=== PATIENT | male | born 1990 | race Caucasian/White ===

== ENCOUNTER 2016-08-10 14:17 | Inpatient (IN) | payer OTHER ==
--- NOTE | ~2016-08-10 | PN ---
Unit #: [id number] #: [id number] Patient: ALBINA JUNIOR [id number] [facility] [address] [place] [address] [id number] MR#: [id number] NAME: ALBINA JUNIOR ROOM: P209 Age: 26 Sex: M Admission Date: 08/10/2016 : 1990 Attending Physician: Kleber Martinez M.D. Admitting Physician: Kleber Martinez M.D. Primary Care Physician: Primary Care Physician Jennifer LI PROGRESS NOTES DATE 08/11/2016 DISCUSSION Mr. Junior is a 26-year-old, white male who was seen today and chart was reviewed and case was discussed with the staff. He has been anxious, withdrawn and rather seclusive to himself. Meanwhile, he has been cooperative with treatment recommendations. He has been taking medications and tolerating them fairly well with no reported side effects. MENTAL STATUS EXAM Young white male who was casually dressed with fair personal hygiene, appears to be in no acute distress or discomfort. He was awake and alert on interaction with intact orientation. His mood was anxious with congruent affect. He denies any suicidal or homicidal ideation. Also, denies any auditory or visual hallucinations. His insight and judgement remains slightly impaired. TREATMENT PLAN 1. We will continue him on his current medications and treatment protocol. We will monitor his response to the medication and make further adjustments as needed. 2. We will continue to follow up. Dictated by... Bharti Benjamin/severo TD: 08/13/2016 01:30 JOB #: [id number] Unit #: [id number] #: [id number] Patient: ALBINA JUNIOR PROGRESS NOTES Page 1 of 1 X Kleber Martinez MD X PROGRESS NOTE
--- NOTE | ~2016-08-10 | PN ---
Unit #: [id number] #: [id number] Patient: ALBINA JUNIOR [id number] [facility] [address] [place] [address] [id number] I MR#: [id number] NAME: ALBINA JUNIOR ROOM: P209 Age: 26 Sex: M Admission Date: 08/10/2016 : 1990 Attending Physician: Kleber Martinez M.D. Admitting Physician: Kleber Martinez M.D. Primary Care Physician: Primary Care Physician Jennifer LI PROGRESS NOTES DATE OF SERVICE: 08/13/2016 SUBJECTIVE Mr. Junior is a 26-year-old white male who was seen today and chart was reviewed, and case was discussed with the staff. He has been anxious, withdrawn, and rather seclusive to himself. Meanwhile, he has been cooperative with treatment recommendations and has been taking the medications and tolerating them fairly well with no reported side effects. MENTAL STATUS EXAMINATION Young white male who was casually dressed with fair personal hygiene, appears to be in no acute distress or discomfort. He was awake and alert on interaction with intact orientation. His mood was anxious with a congruent affect. He denies any suicidal or homicidal ideations, and also denies any auditory or visual hallucinations. His insight and judgment remain slightly impaired. TREATMENT PLAN 1. We will continue him on his current medications and treatment protocol. We will monitor his response to medications and make further adjustments as needed. 2. We will continue to follow up. Dictated by... Bharti Benjamin/mick TD: 08/13/2016 19:32 JOB #: [id number] [facility] PROGRESS NOTES Page 1 of 1 X Kleber Martinez MD PROGRESS NOTE
--- NOTE | ~2016-08-10 | PN ---
Unit #: [id number] #: [id number] Patient: ALBINA JUNIOR [id number] [facility] [address] [place] [address] [id number] MR#: [id number] NAME: ALBINA JUNIOR ROOM: P209 Age: 26 Sex: M Admission Date: 08/10/2016 : 1990 Attending Physician: Kleber Martinez M.D. Admitting Physician: Kleber Martinez M.D. Primary Care Physician: Primary Care Physician Jennifer ESCOBEDO NOTES DATE OF SERVICE: 08/12/2016 SUBJECTIVE Mr. Junior is a 26-year-old white male who was seen today and chart was reviewed, and case was discussed with the staff. He has been anxious, withdrawn, and rather seclusive to himself. Meanwhile, he has been taking the medications and tolerating them fairly well with no reported side effects. MENTAL STATUS EXAMINATION Young white male who was casually dressed with fair personal hygiene, appears to be in no acute distress or discomfort. He was awake and alert on interaction with intact orientation. His mood was anxious with a congruent affect. He denies any suicidal or homicidal ideations. His insight and judgment remain significantly impaired. TREATMENT PLAN 1. We will continue him on his current medications and treatment protocol. We will monitor his response and make further adjustments as needed. 2. We will continue to follow up. Dictated by... Bharti Benjamin/mick TD: 08/12/2016 12:21 JOB #: [id number] [facility] PROGRESS NOTES Page 1 of 1 X Kleber Martinez MD PROGRESS NOTE
--- NOTE | ~2016-08-10 | DS ---
Unit #: [id number] #: [id number] Patient: ALBINA JUNIOR [id number] [facility] [address] [place] [address] [id number] MR#: [id number] NAME: ALBINA JUNIOR ROOM: P209 Age: 26 Sex: M Admission Date: 08/10/2016 : 1990 Discharge Date: 08/14/2016 Attending Physician: Kleber Martinez M.D. Primary Care Physician: Primary Care Physician No DISCHARGE SUMMARY IDENTIFYING DATA Mr. Junior is a 26-year-old, , white male, who is a resident of [place], [place], was self-referred to the hospital on a voluntary basis. DISCHARGE DIAGNOSES Psychiatric: Opioid dependence, moderate, in acute withdrawal; opioid-induced mood disorder. Medical: None. Stressors: Moderate psychosocial stressors. HISTORY OF PRESENT ILLNESS Please see initial psychiatric evaluation for details. PAST PSYCHIATRIC HISTORY Please see initial psychiatric evaluation for details. PAST MEDICAL HISTORY Please see initial psychiatric evaluation for details. HOSPITAL COURSE The patient was [facility] and was oriented to the hospital environment. Routine p.r.n. medications were initiated, and was started back on his home medications and was closely monitored. He was taking medications regularly. He is tolerating them fairly well and was able to show a decent therapeutic response with improvement in depression and anxiety and was willing to continue treatment on an outpatient basis. DISCHARGE MEDICATIONS None. DISCHARGE CONDITION Stable. PROGNOSIS Fair. Dictated by... Kleber Martinez M.D. IAA/modl Unit #: [id number] #: [id number] Patient: ALBINA JUNIOR TD: 08/14/2016 07:32 JOB #: [id number] DISCHARGE SUMMARY Page 1 of 1 X Kleber Martinez MD X DISCHARGE SUMMARY
--- NOTE | ~2016-08-10 | HP ---
Unit #: [id number] #: [id number] Patient: ALBINA JUNIOR [id number] [place] [address] [id number] MR#: [id number] NAME: ALBINA JUNIOR ROOM: P209 Age: 26 Sex: M Admission Date: 08/10/2016 : 1990 Attending Physician: Kleber Martinez M.D. Admitting Physician: Kleber Martinez M.D. Primary Care Physician: Primary Care Physician No HISTORY AND PHYSICAL HISTORY OF PRESENT ILLNESS Albina is a 26 year old admitted to [address] [place] [address] because of his drug use. He snorts heroin. PAST MEDICAL HISTORY Long history of opioid abuse to include heroin. PAST SURGICAL HISTORY Nothing reported. ALLERGIES No known drug allergies. SOCIAL HISTORY He does not smoke or drink alcohol. Admits to snorting heroin. FAMILY HISTORY Medically noncontributory. REVIEW OF SYSTEMS CONSTITUTIONAL: No fever or chills. HEENT: Denies any sore throat, ear pain or runny nose. CARDIOVASCULAR: Denies chest pain, irregular heart rhythm or palpitations. CHEST: Denies shortness of breath or cough. No hemoptysis. GASTROINTESTINAL: Denies nausea, vomiting, diarrhea or chronic constipation. ENDOCRINE: Denies history of increased thirst or urination. No recent significant weight loss or gain. GENITOURINARY: Denies dysuria, frequency, or hematuria. SKIN: Denies any rashes. HEMATOLOGIC: Denies history of increased bleeding or bruising. MUSCULOSKELETAL: Denies any hot, swollen joints. No generalized muscle pain. NEUROLOGIC: Denies problems with vision or speech. No frequent, severe headaches. No numbness, tingling or weakness in any extremities. Denies loss of bladder or bowel control. CURRENT MEDICATIONS Detox protocol. PHYSICAL EXAMINATION GENERAL: Alert, well nourished. No apparent distress. VITAL SIGNS: Blood pressure 126/72, heart rate 70, respirations 16, and Unit #: [id number] #: [id number] Patient: ALBINA JUNIOR temperature 98.6. WEIGHT: 170. HEIGHT: 5 feet 10 inches. SKIN: Warm and dry without rash or lesion. HEENT: Normocephalic. TMs not viewed. Oral and nasal passages clear. Conjunctivae clear. PERRLA. EOMs intact. NECK: Supple without lymphadenopathy or thyromegaly. HEART: Regular rate and rhythm without murmur. LUNGS: Clear. ABDOMEN: Soft, nontender. : Not done. EXTREMITIES: No evidence of cyanosis, clubbing or edema. Moves all without focal deficit. NEUROLOGICAL: Grossly within normal limits. Cranial Nerves: II: Visual lassiter are intact. III, IV AND : Extraocular movements are intact. Pupils are equal, round and reactive to light. V: Facial sensation is grossly normal. VII: Facial movements and expression are normal. VIII: Auditory acuity grossly intact. IX, X: Uvula is midline. Phonation is normal. XI: Patient shrugs shoulders and turns head normally. XII: Tongue protrudes in the midline. Sensory and Motor Function: Sensory and motor sensation is grossly normal. Motor: moves all extremities well. Coordination: Gait is normal. Deep Tendon Reflexes: Intact. IMPRESSION Psychiatric admission. RECOMMENDATIONS PSYCHIATRIC: Per psychiatrist. MEDICAL: I see no contraindication to participate in this facility's activities. MEDICAL PROGNOSIS Good. MEDICAL CONDITION Stable. Dictated by... Kirstin Umaña P.A.-C. for Bharti Contreras/bala TD: 08/11/2016 07:15 JOB #: [id number] Unit #: [id number] #: [id number] Patient: ALBINA JUNIOR HISTORY AND PHYSICAL Page 1 of 1 X Kirstin Umaña HISTORY AND PHYSICAL
--- NOTE | ~2016-08-10 | PA ---
Unit #: [id number] #: [id number] Patient: ALBINA JUNIOR [id number] [facility] [address] [place] [address] [id number] MR#: [id number] NAME: ALBIAN JUNIOR ROOM: P209 Age: 26 Sex: M Admission Date: 08/10/2016 : 1990 Date of Assessment: 08/10/2016 Attending Physician: Kleber Martinez M.D. Admitting Physician: Kleber Martinez M.D. Primary Care Physician: Primary Care Physician No PSYCHIATRIC ASSESSMENT DATE OF SERVICE 08/10/2016. IDENTIFYING DATA Mr. Junior is a 26-year-old white male, who is a resident of [place], [place], was self-referred to the hospital on a voluntary basis. CHIEF COMPLAINT "I want to go through Our detox program." HISTORY OF PRESENT ILLNESS Mr. Junior is a 26-year-old white male, who reports that he is detoxing off heroin. Reports that he has been using heroin for the last 4 years and currently has been using half a gram a day by snorting and reports that his last use was yesterday and he currently has been having significant detox symptoms with restlessness, vomiting, and runny nose, his length of non-use has been just 1 month ago and reports stopping for a month 4 months ago and then he relapsed and has been unable to stay sober on his own and has been having significant consequences because of his addiction. He stated "I'm just trying to get clean." He was seen in acute distress and discomfort with a COWS score of 17 indicating significant withdrawal symptoms and as such, recommendation for inpatient level of care for safety and stabilization was made. The patient was transferred to us. SUBSTANCE ABUSE HISTORY The patient reports opioids to be his drug of choice and has been using opioids for the last 4 years and currently has been using 0.5 to 1 g of heroin a day. PAST PSYCHIATRIC HISTORY The patient has had history of inpatient chemical dependency treatment in the past, though currently is not active in treatment program, is not seeing a psychiatrist, and not taking psychotropic medications. PAST MEDICAL HISTORY No acute or chronic medical illnesses. ALLERGIES No known medication allergies. CURRENT MEDICATIONS None. Unit #: [id number] #: [id number] Patient: ALBINA JUNIOR PERSONAL AND SOCIAL HISTORY A 26-year-old white male, who reports that he is single, unemployed, and has been living with his grandparents and has fairly decent social support system. MENTAL STATUS EXAMINATION Young white male who was casually dressed with fair personal hygiene, appears to be in no acute distress or discomfort. He was awake and alert on interaction with intact orientation to time, place, and person. His mood was anxious and depressed with a congruent affect. His speech was slow and restricted in content. His thought processes were disorganized with some looseness of associations. He denies any suicidal or homicidal ideations, and also denies any auditory or visual hallucinations. His insight and judgment remain significantly impaired. DIAGNOSTIC IMPRESSION Psychiatric: Opioid dependence, moderate and acute withdrawals; opioid-induced mood disorder. Medical: None. Stressors: Moderate psychosocial stressors. TREATMENT PLAN 1. The patient has presented with history of substance abuse and mood disorder, and has been decompensating and will need inpatient hospitalization for detoxification, safety, and stabilization. We will start him on detox protocol. We will closely monitor for any worsening withdrawal symptoms. 2. Supportive therapy was provided to the patient. 3. Safe, structured, and nourishing environment will be provided. ESTIMATED LENGTH OF STAY 4 to 5 days. ABILITY TO HELP SELF Limited. WILLINGNESS TO HELP SELF The patient appears to be willing to help self. STRENGTHS 1. Communicative. 2. Cooperative. PROBLEMS 1. Chronic dysphoric symptoms. 2. Poor social support system. DISCHARGE CRITERIA This will be contingent upon the patient's ability to go through detox without having any significant withdrawal symptoms and his ability to stay safe to himself, particularly after discharge from the hospital. Dictated by... Bharti Benjamin/ignaciol Unit #: [id number] #: [id number] Patient: ALBINA JUNIOR TD: 08/11/2016 23:40 JOB #: [id number] PSYCHIATRIC ASSESSMENT Page 1 of 1 X Kleber Martinez MD PSYCHIATRIC ASSESSMENT
[2016-08-11 12:52] LABS: URINE APPEARANCE TURBID; URINE BILIRUBIN NEG (NEG); URINE BLOOD NEG (NEG); URINE COLOR YELLOW; URINE GLUCOSE NEG (NEG); URINE KETONE NEG (NEG); URINE LEUKOCYTE ESTERASE NEG (NEG); URINE NITRATE NEG (NEG); URINE PROTEIN NEG (NEG); URINE SPECIFIC GRAVITY 1.025 (1.003-1.035); URINE UROBILINOGEN 0.2 MG/DL (NEG)
[2016-08-11 13:19] LABS: AMPHETAMINE NEG (NEG); BARBITURATES NEG (NEG); BENZODIAZEPINES NEG (NEG); COCAINE NEG (NEG); MARIJUANA NEG (NEG); OPIATES POS (NEG); TRICYCLIC ANTIDEPRESSANTS NEG (NEG); U METHADONE NEG (NEG)
[2016-08-13 09:32] LABS: BASOPHIL% 0.3 % (0-2.5); EOSINOPHIL% 0.2 % (0.0-7.0); HEMATOCRIT 40.4 % (38.0-50.0); HEMOGLOBIN 13.5 gm/dL (13.0-16.0); LYMPHOCYTE# 1.6 X10e3 (1.0-3.5); LYMPHOCYTE% 16.8 % (17.0-45.0); MEAN CELL VOLUME 86.9 FL (83-96); MEAN CORPUSCULAR HEMOGLOBIN 29.1 PG (28-34); MEAN CORPUSCULAR HGB CONC 33.5 g/dL (30-36); MEAN PLATELET VOLUME 8.4 FL (6.5-11.5); MONOCYTE# 0.6 X10e3 (0-1.0); MONOCYTE% 6.2 % (3.0-12.0); NEUTROPHIL# 7.4 X10e3 (1.5-7.1); NEUTROPHIL% 76.5 % (40-75); PLATELET COUNT 324 X10e3 (140-420); RED BLOOD COUNT 4.64 X10e (3.90-5.60); RED CELL DISTRIBUTION WIDTH 13.9 % (11.0-15.5); WHITE BLOOD COUNT 9.7 X10e3 (4.0-10.5)
[2016-08-13 09:35] LABS: DIFF IND NO
[2016-08-13 09:47] LABS: ALBUMIN SERUM 4.8 g/dL (3.5-5.0); BILIRUBIN,TOTAL 0.5 mg/dL (0.2-2.0); BUN/CREATININE RATIO 24.44; CALCIUM SERUM 10.6 mg/dL (8.4-10.2); CREATININE SERUM 0.9 mg/dL (0.6-1.4); GLOM FILT RATE Estimated 115.8 mL/min (>60); POTASSIUM 4.5 mmol/L (3.5-5.1); PROTEIN TOTAL SERUM 8.5 g/dL (6.0-8.3)
== END 2016-08-14 10:04 | DRG 897 ==
LOC: P2S 14:17
PROVIDERS: Psychiatry & Neurology Psychiatry
PROC: HZ2ZZZZ Detoxification Services for Substance Abuse Treatment (ICD-10-PCS; principal; 2016-08-10)
DX: F11.23 Opioid dependence with withdrawal (principal); F11.24 Opioid dependence with opioid-induced mood disorder
CPT/HCPCS: 80053; 80307; 81003; 85025; 86592